=== PATIENT | male | born 1995 | race Two or more races ===

== ENCOUNTER 2024-04-28 19:29 | Emergency (ER) | payer MEDICAID ==
[~2024-04-28] VITALS: Ht 182.9 cm; Wt 104.5 kg
[2024-04-28 19:37] VITALS: BP 150/87; PULSE 110; RESP 16; TEMP 97.7; O2SAT 98
== END 2024-04-28 20:09 | disposition home or self-care (01) ==
LOC: ER 19:30
DX: V89.2XXA Person injured in unspecified motor-vehicle accident, traffic, initial encounter; Y93.89 Activity, other specified; Y92.89 Other specified places as the place of occurrence of the external cause; Y99.8 Other external cause status
CPT/HCPCS: 99283